=== PATIENT | male | born 1945 | race Caucasian/White ===

== ENCOUNTER 2021-03-31 12:59 | Inpatient (IN) | payer OTHER ==
[~2021-03-31] VITALS: Ht 172.7 cm; Wt 79.4 kg
[~2021-03-31 12:59] MED LIST: ANTIVERT25 M1 PO; TESSALON200 MG PO; TUSSI PRES-B L120 M1 PO
[2021-03-31] MEDS ORDERED: COZAAR50 MG PO (13:22)
[2021-03-31] MEDS ORDERED: [UNRECOGNIZED DRUG - OTHER] (13:23)
[2021-03-31] MEDS ORDERED: FORTAMET500 MG PO (13:24)
[2021-04-03] MEDS ORDERED: CARBIDOPA-LEVO1 EA12 PO (12:44)
[2021-04-03] MEDS ORDERED: COZAAR100 MG PO (12:44)
[2021-04-03] MEDS ORDERED: CLOPIDOGREL BIS75 MG PO (12:44)
[2021-04-03] MEDS ORDERED: AMLODIPINE BESYL5 MG PO (12:44)
== END 2021-04-03 12:47 | disposition home or self-care (01) | DRG 66 ==
LOC: ER 12:59 → MEDI 20:11
PROVIDERS: ADMIT Internal Medicine; ATTEND Internal Medicine
PROC: BW38ZZZ Magnetic Resonance Imaging (MRI) of Head (ICD-10-PCS; 2021-03-31)
PROC: BW28ZZZ Computerized Tomography (CT Scan) of Head (ICD-10-PCS; 2021-03-31)
PROC: 4A12X4Z Monitoring of Cardiac Electrical Activity, External Approach (ICD-10-PCS; 2021-03-31)
PROC: B24BZZZ Ultrasonography of Heart with Aorta (ICD-10-PCS; principal; 2021-04-01)
PROC: B348ZZZ Ultrasonography of Bilateral Internal Carotid Arteries (ICD-10-PCS; 2021-04-01)
DX: I63.511 Cerebral infarction due to unspecified occlusion or stenosis of right middle cerebral artery (principal); G20 Parkinson's disease; I10 Essential (primary) hypertension; Z20.822 Contact with and (suspected) exposure to COVID-19; E11.9 Type 2 diabetes mellitus without complications; Z79.4 Long term (current) use of insulin
CPT/HCPCS: 70551